=== PATIENT | female | born 1985 | race Caucasian/White ===

== ENCOUNTER → 2020-09-23 | Outpatient (CLI) | payer OTHER, SELFPAY ==
[2020-09-23 15:49] VITALS: BMI 19.0
[2020-09-27 07:59] LABS: HPV APTIMA, High Risk Negative (Negative)
== END | disposition home or self-care (01) ==
LOC: LABSPEC 16:57
PROVIDERS: PCP Student in an Organized Health Care Education/Training Program; Visit Provider Obstetrics & Gynecology
DX: Z12.4 Encounter for screening for malignant neoplasm of cervix (principal)
CPT/HCPCS: 87624; 88175; G0145